=== PATIENT | female | born 1985 | race Caucasian/White ===

== ENCOUNTER 2020-03-06 08:01 | Emergency (ER) | payer MEDICAID ==
[~2020-03-06] VITALS: Ht 165.1 cm; Wt 94.3 kg
[2020-03-06 08:10] VITALS: BP 121/88; Ht 165.1 cm; Wt 94.3 kg
== END 2020-03-06 09:30 | disposition home or self-care (01) ==
LOC: ED 08:01
DX: J03.90 Acute tonsillitis, unspecified (principal); Z20.828 Contact with and (suspected) exposure to other viral communicable diseases
CPT/HCPCS: U0003-CS